=== PATIENT | male | born 1985 | race Caucasian/White ===

== ENCOUNTER → 2022-07-02 13:30 | Outpatient (CLI) | payer OTHER, SELFPAY ==
[2022-07-02 14:31] LABS: Influenza A - CEPHEID Flu A NEGATIVE (NEGATIVE); Influenza B - CEPHEID Flu B NEGATIVE (NEGATIVE); Respiratory Syncytial Virus Negative (Negative)
[2022-07-02 14:33] LABS: COVID-19 CEPHEID 4-PLEX PCR Negative (Negative)
== END ==
PROVIDERS: Visit Provider Physician Assistant
DX: J06.9 Acute upper respiratory infection, unspecified (principal)
CPT/HCPCS: 0241U

== ENCOUNTER → 2024-06-28 18:33 | Outpatient (CLI) | payer OTHER, SELFPAY ==
[2024-06-28 19:22] LABS: Influenza A - CEPHEID Flu A NEGATIVE (NEGATIVE); Influenza B - CEPHEID Flu B NEGATIVE (NEGATIVE); Respiratory Syncytial Virus Negative (Negative)
[2024-06-28 19:23] LABS: COVID-19 CEPHEID 4-PLEX PCR Negative (Negative)
== END ==
PROVIDERS: Visit Provider Nurse Practitioner Family
DX: R05.1 Acute cough (principal); J02.9 Acute pharyngitis, unspecified
CPT/HCPCS: 0241U; 87070; 87077; 87147